=== PATIENT | male | born 1945 | race Caucasian/White ===

== ENCOUNTER 2022-11-09 11:12 | Outpatient (CLI) | payer MEDICARE, MEDICAID, SELFPAY ==
[2022-11-09 15:59] LABS: Kit Draw Collected
== END 2022-11-09 11:13 | disposition home or self-care (01) ==
LOC: ANHGOSHLAB 11:15
PROVIDERS: PCP Family Medicine; Visit Provider Family Medicine
DX: R97.20 Elevated prostate specific antigen [PSA] (principal); I10 Essential (primary) hypertension
CPT/HCPCS: 36415

== ENCOUNTER 2023-11-24 12:34 | Outpatient (CLI) | payer MEDICARE, MEDICAID, SELFPAY ==
[2023-11-24 18:57] LABS: Basophils Absolute Auto 0.1 K/mm3 (0.0-0.1); Basophils Percent Auto 0.7 % (0.2-1.2); Eosinophils Absolute Auto 0.2 K/mm3 (0-0.3); Eosinophils Percent Auto 2.3 % (0-4.4); Hematocrit 41.2 % (42.0-52.0); Hemoglobin 13.6 g/dL (14.0-18.0); Immature Granulocyte Absolute 0.01 K/mm3 (0.00-0.031); Immature Granulocyte Percent A 0.1 % (0-0.5); Lymphocytes Percent Auto 23.3 % (18.3-44.2); Mean Corpuscular Volume 90.7 fl (80-100); Mean Platelet Volume 9.7 fl (7.4-10.4); Monocytes Absolute Auto 0.6 K/mm3 (0.1-0.6); Monocytes Percent Auto 8.9 % (2.6-8.5); Neutrophils Absolute Auto 4.4 K/mm3 (1.3-6.7); Neutrophils Percent Auto 64.7 % (45.5-73.1); Platelet Count Result 294 k/mm3 (150-375); Red Blood Count 4.54 M/mm3 (4.6-6.20); Red Cell Distribution Width 13.6 % (11.5-14.5); White Blood Count 6.9 K/mm3 (4.5-10.0)
[2023-11-24 19:02] LABS: Alanine Aminotransferase 14 U/L (6-50); Albumin Level 4.2 g/dL (3.5-5.1); Alkaline Phosphatase 81 U/L (38-126); Anion Gap 10 mmol/L (4-12); Aspartate Amino Transferase 47 U/L (17-59); Bilirubin,Total 0.7 mg/dL (0.2-1.3); Blood Urea Nitrogen 15 mg/dL (9-20); Calcium 9.6 mg/dL (8.4-10.2); Carbon Dioxide 28 mmol/L (22-30); Chloride 96 mmol/L (98-107); Cholesterol 151 mg/dL (0-200); Estimated Glomerular Filt Rate > 60; Glucose 93 mg/dL (65-110); HDL Direct 49 mg/dL; Potassium 3.9 mmol/L (3.4-5.0); Sodium 134 mmol/L (137-145); Triglycerides 70 mg/dL (<150)
[2023-11-24 19:13] LABS: LDL Cholesterol Direct 74 mg/dL
[2023-11-24 19:31] LABS: Prostate Specific Antigen 3.9 ng/mL (< OR = 4.0)
[2023-11-24 19:40] LABS: Hemoglobin A1C 6.1 % (<5.7)
[2023-11-29 10:33] LABS: Vitamin D 1,25 (OH)2 Total 24 pg/mL (18-72); Vitamin D2 1,25 (OH)2 <8 pg/mL; Vitamin D3 1,25 (OH)2 24 pg/mL
== END 2023-11-24 12:35 | disposition home or self-care (01) ==
LOC: ANHGOSHLAB 12:36
PROVIDERS: PCP Family Medicine; Visit Provider Nurse Practitioner Family
DX: Z12.5 Encounter for screening for malignant neoplasm of prostate (principal); R97.20 Elevated prostate specific antigen [PSA]; I11.9 Hypertensive heart disease without heart failure; E78.5 Hyperlipidemia, unspecified; I35.0 Nonrheumatic aortic (valve) stenosis; E55.9 Vitamin D deficiency, unspecified; R73.03 Prediabetes; E03.9 Hypothyroidism, unspecified; I73.9 Peripheral vascular disease, unspecified; E53.8 Deficiency of other specified B group vitamins
CPT/HCPCS: 36415; 80053; 80061; 82607; 82652; 83036; 84153; 84443; 85025; G0103

== ENCOUNTER 2025-01-14 09:59 | Outpatient (CLI) | payer MEDICARE, MEDICAID, SELFPAY ==
--- OUTSIDE RECORDS SUMMARY | 2009-08-30 19:00 | XMS_ITS | Continuity of Care Document ---
Author Organization [facility] [place] [address] [place] [address] [address] [place] [address] Phone Care Team Providers Care Calculator Operator Name Role Phone [facility] Unavailable Unavail able Procedures Procedure Date Vision Svcs Frames Purchases Tint Photochromatic, Polycarb 0 SV Poly Carb Sph +/- 7.12 To +/- 20 D Ma Polycarb Lens Per Lens Eye Exam, New Patient Refraction Advance Directives Directive Yes / No Effective Date File Name No Information Encounters Encounter Description Practice Location Reason(s) For Visit Diagnoses Date Provider Providers Copied on Encounter [facility], [address] [place], [place] [address], [place], [place], [id number], tel:[phone] [facility] No Information 3-201 0 [facility] . [address] [facility], [facility] [address], [place], [id number], [place]. tel:[phone] Referring Provider: Amado Gallegos, [address], [place], [address]. tel:[phone] [facility], [address] [place] [address] [address], [place], [place], [id number], tel:[phone] [facility] No Information 0-201 0 Harmon OD Amado. [address] , [address], [place], [address], [place]. tel:[phone] Family History Family Member Type Diagnosis Age At Onset No Information Payers Payer name Insurance type Covered alliance party ID Javier buckner(s) P CI [id number] Social History Type Description Quantity Date Captured Comments Sex Male Smoking Status No Information Chief Complaint And Reason For Visit No Information Reason For Referral Reason For Referral No Information History Of Present Illness Encounter Date Complaint History Of Prese nt Illness No Information Functional Status Date Functional Assessmen t No Information Instructions Date Instruction Additional Infor mation No Information Assessments Type Assessment Date No Information Patient Care Teams Name Effective Dates (start - stop) Status Members No Information
[2025-01-14 19:30] LABS: Alanine Aminotransferase 13 U/L (6-50); Albumin Level 4.1 g/dL (3.5-5.1); Alkaline Phosphatase 75 U/L (38-126); Anion Gap 8 mmol/L (4-12); Aspartate Amino Transferase 69 U/L (17-59); Bilirubin,Total 0.7 mg/dL (0.2-1.3); Blood Urea Nitrogen 15 mg/dL (9-20); Calcium 9.3 mg/dL (8.4-10.2); Carbon Dioxide 29 mmol/L (22-30); Chloride 96 mmol/L (98-107); Estimated Glomerular Filt Rate > 60; Glucose 87 mg/dL (65-110); Potassium 3.7 mmol/L (3.4-5.0); Sodium 133 mmol/L (137-145); Total Protein 7.6 g/dL (6.3-8.2)
[2025-01-14 19:36] LABS: Hematocrit 41.2 % (42.0-52.0); Hemoglobin 13.4 g/dL (14.0-18.0); Immature Granulocyte Percent A 0.2 % (0-0.5); Lymphocytes Absolute Auto 1.34 K/mm3 (0.9-3.2); Mean Corpuscular HGB Conc 32.5 g/dl (32-36); Mean Corpuscular Hemoglobin 29.7 pg (26-34); Mean Corpuscular Volume 91.4 fl (80-100); Nucleated Red Blood Cells Absolute Auto 0.000 K/mm3 (0.0-0.012); Nucleated Red Blood Cells Perc 0.0 % (0.0-0.2); Platelet Count Result 290 k/mm3 (150-375); Red Blood Count 4.51 M/mm3 (4.6-6.20); White Blood Count 6.3 K/mm3 (4.5-10.0)
[2025-01-14 20:09] LABS: Hemoglobin A1C 5.9 % (<5.7)
[2025-01-14 20:45] LABS: Prostate Specific Antigen 3.7 ng/mL (< OR = 4.0)
== END 2025-01-14 10:00 | disposition home or self-care (01) ==
LOC: ANHGOSHLAB 10:00
PROVIDERS: PCP Family Medicine; Visit Provider Family Medicine
DX: Z00.00 Encounter for general adult medical examination without abnormal findings (principal); I10 Essential (primary) hypertension; R73.03 Prediabetes; R97.20 Elevated prostate specific antigen [PSA]; Z12.5 Encounter for screening for malignant neoplasm of prostate
CPT/HCPCS: 36415; 80053; 83036; 84153; 85025; G0103